=== PATIENT | male | born 1960 | race Caucasian/White ===

== ENCOUNTER 2022-05-09 15:19 | Emergency (ER) | payer MEDICAID, OTHER ==
[~2022-05-09] VITALS: Ht 170.2 cm; Wt 68.0 kg
[2022-05-09 15:41] VITALS: BP 141/99
== END 2022-05-09 20:07 | disposition home or self-care (01) ==
LOC: EDBD 15:19 → ER 15:19
DX: F11.10 Opioid abuse, uncomplicated (principal); F15.10 Other stimulant abuse, uncomplicated; Z88.0 Allergy status to penicillin; Z59.00 Homelessness unspecified

== ENCOUNTER → 2022-11-15 | Emergency (ER) | payer MEDICAID ==
[~2022-11-15] VITALS: Ht 167.6 cm; Wt 65.0 kg
[2022-11-15 17:28] VITALS: BP 150/90; PULSE 100; RESP 18; O2SAT 95
== END | disposition left against medical advice (07) ==
LOC: EDUNIT# 17:01 → ER 17:03 → EDBD 17:03
DX: F15.10 Other stimulant abuse, uncomplicated (principal); F19.10 Other psychoactive substance abuse, uncomplicated; Z59.00 Homelessness unspecified

== ENCOUNTER 2022-11-16 05:00 | Emergency (ER) | payer MEDICAID ==
[~2022-11-16] VITALS: Ht 170.2 cm; Wt 68.6 kg
[2022-11-16 05:39] VITALS: PULSE 72; RESP 18; O2SAT 99
[2022-11-16 07:40] VITALS: BP 120/73; PULSE 63; RESP 12; O2SAT 98
== END 2022-11-16 08:36 | disposition home or self-care (01) ==
LOC: ER 05:00
DX: F15.90 Other stimulant use, unspecified, uncomplicated (principal); R06.02 Shortness of breath; Z88.0 Allergy status to penicillin
CPT/HCPCS: 71045; 93005

== ENCOUNTER → 2022-11-16 | Emergency (ER) | payer MEDICAID ==
[~2022-11-16] VITALS: Ht 170.2 cm; Wt 65.4 kg
[~2022-11-16] MED LIST: ONDANSETRON ODT 4 MG TAB PO ONE; SODIUM CHLORIDE 0.9% 2,000 ML IV ONE
[2022-11-16 14:14] VITALS: BP 136/91; PULSE 78; RESP 18; O2SAT 96
== END | disposition left against medical advice (07) ==
LOC: ER 14:06
DX: T40.411A Poisoning by fentanyl or fentanyl analogs, accidental (unintentional), initial encounter (principal); R94.31 Abnormal electrocardiogram [ECG] [EKG]; Z53.21 Procedure and treatment not carried out due to patient leaving prior to being seen by health care provider; Y92.9 Unspecified place or not applicable
CPT/HCPCS: 93005

== ENCOUNTER 2022-11-17 09:02 | Emergency (ER) | payer MEDICAID ==
[~2022-11-17] VITALS: Ht 170.2 cm; Wt 68.0 kg
[2022-11-17 09:41] LABS: Basophils # (auto) 0 10 ^3/uL (0-0.2); Basophils % (auto) 0.3 % (0.0-2.0); Eosinophils # (auto) 0.1 10 ^3/uL (0-0.8); Eosinophils % (auto) 1.4 % (0.0-7.0); Hematocrit 42.1 % (41.0-53.0); Hemoglobin 14.4 g/dL (13.5-17.5); Lymphocytes # (auto) 1.6 10 ^3/uL (0.4-5.4); Lymphocytes % (auto) 21.5 % (10.0-50.0); Mean Corpuscular Hgb Conc. 34.2 g/dL (32.0-36.0); Mean Corpuscular Volume 87.6 fL (80.0-100.0); Monocytes # (auto) 0.8 10 ^3/uL (0-1.3); Monocytes % (auto) 11.1 % (0.0-12.0); Neutrophils # (auto) 4.9 10 ^3/uL (1.6-8.6); Neutrophils % (auto) 65.7 % (37.0-80.0); Nucleated Red Blood Cells % 0.1 %; Red Blood Cells 4.81 10^6/uL (4.5-5.90); Red Cell Distribution Width 13.5 % (11.8-14.3); White Blood Cell 7.5 10^3/uL (4.4-10.8)
[2022-11-17 09:58] LABS: Alanine Aminotransferase 18 U/L (7-40); Albumin 4.1 g/dL (3.2-4.8); Alkaline Phosphatase 102 U/L (46-116); Anion Gap 9 (5-15); Aspartate Aminotransferase 25 U/L (13-40); BUN/Creatinine Ratio 16.3 (10.0-20.0); Blood Urea Nitrogen 20 mg/dL (9-23); Carbon Dioxide 24 mmol/L (20-30); Chloride 105 mmol/L (98-107); Glucose 122 mg/dL (74-106); Potassium 3.1 mmol/L (3.5-5.1); Sodium 138 mmol/L (136-145)
[2022-11-17 09:59] LABS: Bilirubin, Total 0.4 mg/dL (0.2-1.0); Total Protein 6.9 g/dL (5.7-8.2)
[2022-11-17] MEDS ORDERED: POTASSIUM EFFERVESENT TAB 25 MEQ PO ONE (12:30)
[2022-11-17 12:55] VITALS: BP 114/72; PULSE 80; RESP 17; TEMP 97.9; O2SAT 97
[2022-11-17 14:33] LABS: Urine Bacteria FEW /hpf (None Seen); Urine Blood Negative /uL (Negative); Urine Clarity Clear (Clear); Urine Color Yellow (Yellow); Urine Hyaline Cast FEW /lpf (0 - 2); Urine Mucus FEW (None Seen); Urine Protein, UAD 1+ (Negative); Urine Specific Gravity 1.029 (1.001-1.035); Urine WBC 2 /hpf (0 - 3)
[2022-11-17 14:36] LABS: Amphetamine Screen, Urine Neg (NEGATIVE); Barbiturate Scree,Urine Neg (NEGATIVE); Benzodiazephine Screen, Urine Neg (NEGATIVE); Cocaine Screen, Urine Neg (NEGATIVE)
[2022-11-17 14:37] LABS: Cannabinoid Screen, Urine Neg (NEGATIVE); Opiate Scree,Urine Neg (NEGATIVE); Phencyclidine Screen, Urine Neg (NEGATIVE)
== END 2022-11-17 16:04 | disposition home or self-care (01) ==
LOC: ER 09:02
DX: R53.1 Weakness (principal); E87.6 Hypokalemia; F11.10 Opioid abuse, uncomplicated; R07.89 Other chest pain; I11.0 Hypertensive heart disease with heart failure; I50.9 Heart failure, unspecified; Z95.0 Presence of cardiac pacemaker; Z59.00 Homelessness unspecified; Z88.0 Allergy status to penicillin
CPT/HCPCS: 36415; 71046; 80053; 80307; 81001; 84484; 85025; 93005

== ENCOUNTER 2023-03-21 10:16 | Emergency (ER) | payer MEDICAID ==
[~2023-03-21] VITALS: Ht 170.2 cm; Wt 72.7 kg
[2023-03-21 10:16] VITALS: BP 150/94
[2023-03-21 10:40] LABS: Basophils # (auto) 0.1 10 ^3/uL (0-0.2); Basophils % (auto) 0.6 % (0.0-2.0); Eosinophils # (auto) 0.1 10 ^3/uL (0-0.8); Eosinophils % (auto) 0.7 % (0.0-7.0); Hematocrit 39.3 % (41.0-53.0); Hemoglobin 13.2 g/dL (13.5-17.5); Lymphocytes # (auto) 1.1 10 ^3/uL (0.4-5.4); Lymphocytes % (auto) 12.6 % (10.0-50.0); Mean Corpuscular Hemoglobin 30.1 pg (28.0-32.0); Mean Corpuscular Hgb Conc. 33.6 g/dL (32.0-36.0); Mean Corpuscular Volume 89.5 fL (80.0-100.0); Monocytes # (auto) 0.7 10 ^3/uL (0-1.3); Monocytes % (auto) 7.5 % (0.0-12.0); Neutrophils % (auto) 78.6 % (37.0-80.0); Red Blood Cells 4.39 10^6/uL (4.5-5.90); Red Cell Distribution Width 13.4 % (11.8-14.3); White Blood Cell 8.9 10^3/uL (4.4-10.8)
[2023-03-21 10:50] VITALS: PULSE 68; RESP 25; O2SAT 95
[2023-03-21 10:56] LABS: INR 1.04 (0.9-1.15); Partial Thromboplastin Time 28.5 SEC (24.5-34.5); Prothrombin Time 10.9 sec (9.3-11.8)
[2023-03-21 11:12] VITALS: PULSE 73
[2023-03-21 11:19] LABS: Alanine Aminotransferase 21 U/L (7-40); Alkaline Phosphatase 113 U/L (46-116); Anion Gap 3 (5-15); Aspartate Aminotransferase 23 U/L (13-40); BUN/Creatinine Ratio 24.1 (10.0-20.0); Bilirubin, Total 0.3 mg/dL (0.2-1.0); Blood Urea Nitrogen 21 mg/dL (9-23); Calcium 8.5 mg/dL (8.5-10.1); Carbon Dioxide 32 mmol/L (20-30); Chloride 103 mmol/L (98-107); Glucose 111 mg/dL (74-106); Sodium 138 mmol/L (136-145); Total Protein 5.6 g/dL (5.7-8.2)
[2023-03-21 11:36] LABS: Magnesium 1.7 mg/dL (1.6-2.6)
== END 2023-03-21 12:00 | disposition home or self-care (01) ==
LOC: ER 10:16
DX: R07.89 Other chest pain (principal); I11.0 Hypertensive heart disease with heart failure; I50.9 Heart failure, unspecified; F15.10 Other stimulant abuse, uncomplicated; Z59.00 Homelessness unspecified; Z88.0 Allergy status to penicillin
CPT/HCPCS: 36415; 71045; 80053; 83735; 83880; 84484; 85025; 85610; 85730; 93005